=== PATIENT | female | born 1950 | race Caucasian/White ===

== ENCOUNTER 2020-05-04 23:29 | Emergency (ER) | payer MEDICARE, OTHER ==
[2020-05-04] MEDS ORDERED: Morphine 4 MG/ML VIAL ONE (23:44)
[2020-05-04] MEDS ORDERED: Ondansetron PF 4 MG/2 ML Vial ONE (23:45)
[2020-05-05] MEDS ORDERED: Morphine 4 MG/ML VIAL ONE (01:19)
[2020-05-05] MEDS ORDERED: HYDROcodone/Acetaminophen 5/325 mg Tablet ONE (02:32)
--- NOTE | 2020-05-05 08:00 | RAD ---
Exam: 3 views of lumbar spine HISTORY: Low back pain Comparison none FINDINGS: 5 lumbar type vertebra. Probable chronic changes along the inferior endplate of L1. Disc sp rod heights are preserved. No fractures or malalignment. No spondylolisthesis or spondylolysis. Atherosclerosis is noted Mild leftward curvature of the spine IMPRESSION: No fracture. Presumed chronic changes at the inferior endplate of L1.
--- NOTE | 2020-05-05 08:02 | CT ---
PRELIMINARY REPORT/[facility]/EMERGENCY AFTER HOURS PROCEDURE: EXAM: CT Lumbar Spine Without Intravenous Contrast. CLINICAL HISTORY: Patient was chasing cat and twisted and felt pop; LOWER BACK PAIN TECHNIQUE: Axial computed tomography images of the lumbar spine without intravenous contrast. Sagitta l and coronal reformations performed. COMPARISON: None provided. FINDINGS: BONES: No acute fracture or focal osseous lesion. Leftward curvature of the lumbar spine. DISCS/DEGENERATIVE CHANGES: Multilevel degenerative changes of the spine with multilevel endplate def ormities primarily involving L1 and L3.. SOFT TISSUES: The paraspinal soft tissues are unremarkable. Right upper quadrant surgical clips. Sc attered atherosclerotic aortic calcifications IMPRESSION: No acute lumbar spine abnormality. 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 ELECTRONICALLY SIGNED BY: Nam Coleman DO May 05, 2020 1:37:42 AM CDT FINAL REPORT LUMBAR SPINE CT WITHOUT CONTRAST: HISTORY: Patient was chasing a cat, had an occurrence of twisting and felt a pop. Low back pain COMPARISON: None. FINDINGS: Five lumbar-type vertebrae. No acute fracture. No spondylolisthesis or spondylolysis. Chronic changes at the inferior endplate of L1 and superior plate of L2 and L3. Mild leftward curvature of the lumbar spine. Disc space heights are preserved. Throughout the lumbar spine, no high-grade central canal stenosis o r high-grade neural foraminal narrowing. Technique limits interpretation. IMPRESSION: 1. This report is in agreement with the initial report by [facility]. 2. No fracture. No significant central canal stenosis or significant neural foraminal narrowing. Transcribed Date/Time: 05/05/2020 8:31 AM
== END 2020-05-05 02:55 | disposition home or self-care (01) ==
LOC: ERS 23:29
DX: S39.012A Strain of muscle, fascia and tendon of lower back, initial encounter (principal); F32.9 Major depressive disorder, single episode, unspecified; W01.0XXA Fall on same level from slipping, tripping and stumbling without subsequent striking against object, initial encounter
CPT/HCPCS: 72100; 72131; 96374; 96375; 96376; J2270; J2405